=== PATIENT | female | born 1955 | race American Indian/Alaskan Native ===

== ENCOUNTER 2017-01-16 10:56 | Outpatient (CLI) | payer OTHER ==
--- NOTE | 2017-01-16 11:47 | XRay Report ---
Right foot: Pain. Routine views demonstrate a surgical pin in the distal first metatarsal consistent with prior repair. Minimal degenerative spurring is present at the first MP joint. With this exception the findings are generally unremarkable for any significant bone, soft tissue, or or joint findings. These findings are all unchanged compared to December 01, 2015. Impression: No acute finding.
== END 2017-01-16 10:57 | disposition home or self-care (01) ==
LOC: XRAY 10:56
PROVIDERS: ATTEND Family Medicine
DX: M25.871 Other specified joint disorders, right ankle and foot (principal)